=== PATIENT | male | born 1985 | race Two or more races ===

== ENCOUNTER 2022-02-13 12:15 | Emergency (ER) | payer BC ==
[~2022-02-13] VITALS: Ht 167.6 cm; Wt 81.6 kg
[2022-02-13 12:42] VITALS: BP 144/107
--- NOTE | 2022-02-13 13:20 | NUR ---
called to room pt- NO answer
--- NOTE | 2022-02-13 13:21 | NUR ---
Called to room pt - Eloped
[2022-02-13] MEDS ORDERED: IBUP-1957 PO (16:04)
== END 2022-02-13 13:00 | disposition left against medical advice (07) ==
LOC: ER 12:19
DX: Z53.21 Procedure and treatment not carried out due to patient leaving prior to being seen by health care provider (principal)

== ENCOUNTER 2022-02-13 13:44 | Emergency (ER) | payer BC ==
[~2022-02-13] VITALS: Ht 165.1 cm; Wt 72.6 kg
--- NOTE | 2022-02-13 14:00 | NUR ---
The patient bibs for "I fell down 02/10 at work been having body pain since but L foot worse". Rates pain /. In room air and denies SOB. Respiration regular and unlabored. Will continue to monitor the patient.
[2022-02-13] MEDS ORDERED: KETOROLAC TROMETHAMINE INJ 30 MG/ML VIAL ONE (15:27)
[2022-02-13] MEDS ORDERED: KETOROLAC TROMETHAMINE INJ 30 MG/ML VIAL IM ONE (15:30)
--- NOTE | 2022-02-13 15:30 | NUR ---
XRAY OF FOOT DONE
--- NOTE | 2022-02-13 15:35 | NUR ---
TORADOL IM GIVEN ON LEFT DELTOID
[2022-02-13] MEDS ORDERED: IBUP-1957 PO (16:04)
--- NOTE | 2022-02-13 16:24 | NUR ---
MIKE WRAP APPLIED TO AFFECTED FOOT.
--- NOTE | 2022-02-13 16:24 | NUR ---
Patient discharged to home in stable condition. Written and verbal after care instructions given. Patient verbalizes understanding of instruction.
[2022-02-13 16:30] VITALS: BP 144/107
== END 2022-02-13 16:30 | disposition home or self-care (01) ==
LOC: ER 14:16
DX: S93.402A Sprain of unspecified ligament of left ankle, initial encounter (principal); Z79.1 Long term (current) use of non-steroidal anti-inflammatories (NSAID); W18.30XA Fall on same level, unspecified, initial encounter; Y93.89 Activity, other specified; Y92.89 Other specified places as the place of occurrence of the external cause; Y99.0 Civilian activity done for income or pay
CPT/HCPCS: 73610; 73630; 96372; 99284; J1885